=== PATIENT | female | born 1995 | race Caucasian/White ===

== ENCOUNTER 2022-05-10 07:00 | Day surgery (SDC) | payer OTHER ==
[2022-05-05 16:20] LABS: Absolute Lymphocytes (CBC) 2.7 K/uL (0.7-4.9); Hematocrit 37.6 % (36.0-45.0); Lymphocytes % 24.9 % (15.3-44.8); MCV 82.7 fL (80-100); MPV 8.9 fL (7.6-11.3); RBC Red Blood Cell Count 4.55 M/uL (3.86-4.86)
[2022-05-05 16:49] LABS: ALT/SGPT 27 U/L (12-78); AST/SGOT 15 U/L (15-37); Albumin 3.7 g/dL (3.4-5.0); Alkaline Phosphatase 84 U/L (45-117); Amylase 55 U/L (25-115); BUN Blood Urea Nitrogen 13 mg/dL (7-18); Bicarbonate 26 mmol/L (21-32); Bilirubin Total 0.2 mg/dL (0.2-1.0); Glomerular Filtration Rate 107 ml/min (=/>90); Glucose Level 89 mg/dL (74-106); Lipase 132 U/L (73-393); Potassium 3.8 mmol/L (3.5-5.1); Protein, Total 8.1 g/dL (6.4-8.2); Sodium Level 138 mmol/L (136-145)
[2022-05-05 17:19] LABS: Bilirubin Direct < 0.1 mg/dL (0-0.2)
[2022-05-10] MEDS ORDERED: Ringers Lactate 1,000 ML IV ONE (07:19)
[2022-05-10 07:22] LABS: Urine Specific Gravity/Preg >1.030 (1.005-1.030)
[2022-05-10] MEDS ORDERED: FENTANYL CITR 100 MCG/2 ML ONE (08:18)
[2022-05-10] MEDS ORDERED: ROCURONIUM 50 MG/5 ML VIAL IV ONE (08:18)
[2022-05-10] MEDS ORDERED: propofoL 200 MG/20 ML VIAL IV ONE (08:18)
[2022-05-10] MEDS ORDERED: ONDANSETRON 4 MG/2 ML VIAL ONE ×2 (08:19→09:54)
[2022-05-10] MEDS ORDERED: LIDOCAINE 2% MPF 5 ML VIAL ONE (08:19)
[2022-05-10] MEDS ORDERED: MIDAZOLAM HCL 2 MG/2 ML INJ ONE (08:19)
[2022-05-10] MEDS ORDERED: CEFOXITIN SODIUM 1 GM/VIAL ONE ×2 (08:26→08:27)
[2022-05-10] MEDS ORDERED: dexAMETHasone 4 MG/ML VIAL ONE (08:49)
[2022-05-10] MEDS ORDERED: GLYCOPYRROLATE 0.2 MG/ML SYR ONE (09:16)
[2022-05-10] MEDS ORDERED: NEOSTIGMINE 1 MG/ML -5 ML ONE (09:21)
--- NOTE | 2022-05-10 09:23 | P.BOP ---
Preoperative diagnosis: symptomatic cholelithiasis Postoperative diagnosis: same Primary procedure: Laparoscopic cholecystectomy Estimated blood loss: <10cc Specimen: gb Findings: as above Anesthesia: General Complications: None Transferred to: Recovery Room Condition: Good
[2022-05-10] MEDS ORDERED: KETOROLAC 30 MG/ML INJ ONE (09:28)
[2022-05-10] MEDS: HYDROMORPHONE HCL 1 MG/ML INJ ONE ×2 (09:55→10:00)
[2022-05-10 13:11] VITALS: BP 109/50; TEMP 96.7; O2SAT 94
--- NOTE | 2022-05-10 21:27 | OP ---
Date of Procedure: 05/10/2022 Surgeon: Lui Mercado MD Preoperative Diagnoses: Symptomatic cholelithiasis, right upper quadrant abdominal pain. Postoperative Diagnoses: Symptomatic cholelithiasis, right upper quadrant abdominal pain. Procedure: Laparoscopic cholecystectomy. Anesthesia: General plus local. Complications: None. Indications: This is a 26-year-old patient with above diagnosis fully explained the benefits, altern atives, and risks, laparoscopic possible open cholecystectomy, which include, but not limited to infe ction, bleeding, damage to adjacent structures, anesthesia complication, choledocholithiasis, bile le ak, pancreatitis, IA, and even . She also understands this may not relieve symptoms, she might need more than one surgical intervention. She understood, signed a consent. Procedure In Detail: Patient was brought to the operating room and placed in supine position. Anest hesia was given without complication. Abdominal area was prepped and draped in the usual sterile fas hion. Marcaine 0.5% was injected for local anesthetic, followed by sharp incision of the skin in the infraumbilical region. Incision was carried down to fascia, which was opened under direct vision. Peritoneum was encountered, opened under direct vision. Vicryl #1 placed inside the fascia. Magdi trocar was carefully introduced. Pneumoperitoneum was obtained. I placed 3 more trocars, 5 mm each one of them epigastric right upper quadrant area under direct visualization. This allowed me to put a grasper in the fundus of the gallbladder and another grasper in the infundibulum, retracted the gal lbladder in the inferolateral fashion exposing the triangle of Calot, obtaining critical view. The c ystic duct and cystic artery were clearly isolated and clearly isolated and freed circumferentially a nd a connection between those and the gallbladder were clearly identified. I proceeded to ligate tho se by using at least 3 clips proximal and 1 clip distal, ligation in middle. Same was done with the cystic artery. No bile leak, no bleeding. The gallbladder was removed from liver using Bovie cauter izer and removed from abdominal cavity using EndoCatch through the umbilical incision. The area was inspected once again. No bile leak, no bleeding. At that moment, I proceeded to remove the trocars under direct vision. Deflated the pneumoperitoneum, closed the fascia with #1 Vicryl, irrigated subc utaneous incision, closed that with 3-0 chromic, and the skin in a subcuticular fashion with 3-0 custom feed mill operator mao and Steri-Strips on top. Sponge count, instrument counts correct. Patient tolerated the procedu re well. Patient was sent to recovery in stable condition. Disposition: Home. Activity: As tolerated. No heavy lifting. Followup: My office in 1 week. Call for appointment at [phone]. Keep the area dry for 48 hours, t hen may shower. Keep Steri-Strips intact. MARIA ALEJANDRA/SCOTT Voice ID: [id number] Report ID: [id number]
== END 2022-05-10 13:08 | disposition home or self-care (01) ==
LOC: OR 07:00
PROVIDERS: ATTEND Surgery
PROC: 0FT44ZZ Resection of Gallbladder, Percutaneous Endoscopic Approach (ICD-10-PCS; principal; 2022-05-10 08:30)
DX: K80.10 Calculus of gallbladder with chronic cholecystitis without obstruction (principal); R10.11 Right upper quadrant pain
CPT/HCPCS: 85025; 80048; 36415; 82150; 81025; 80076; 88304; 83690; 47562; J2704; J1100; J2001; J2250; J3010; J1170; J2710; J7120; J0694; J2405 ×2